=== PATIENT | female | born 1960 | race Caucasian/White ===

== ENCOUNTER → 2016-08-23 | Outpatient (CLI) | payer BC ==
[2016-08-24 18:29] LABS: GLIADIN ANTIBODY IGA <10.0 U (()); GLIADIN ANTIBODY IGG <10.0 U (()); TISSUE TRANSGLUT AB IGA <1.2 U/mL (())
== END ==
LOC: LAB 10:37
PROVIDERS: ATTEND Internal Medicine Gastroenterology
DX: R10.84 Generalized abdominal pain (principal); R14.0 Abdominal distension (gaseous)
CPT/HCPCS: 36415; 83516